=== PATIENT | female | born 1975 | race Caucasian/White ===

== ENCOUNTER 2016-09-28 12:22 | Emergency (ER) | payer OTHER ==
[~2016-09-28] VITALS: Ht 167.6 cm; Wt 59.0 kg
--- NOTE | 2016-09-28 12:25 | NUR ---
PATIENT ARRIVED TO ER AMBULATORY, C/O N/V, ABDOMINAL PAIN, AND HEADACHE. PATIENT'S VITALS STABLE. COMFORT AND SAFETY MEASURES PROVIDED, AWAITING MD ORDERS, WILL MONITOR.
[2016-09-28] MEDS ORDERED: ONDANSETRON HCL/PF 4 MG/2 ML VIAL IVP ONE (13:00)
[2016-09-28] MEDS ORDERED: IV NS 0.9% 500 ML BAG IV ONE (13:00)
[2016-09-28] MEDS ORDERED: KETOROLAC TROMETHAMINE INJ 60 MG/2 ML VIAL IM ONE ×2 (13:00→13:14)
[2016-09-28] MEDS ORDERED: IV SET PRIMARY PUMP SET 1 EA INFUS.SET MC ONE (13:14)
[2016-09-28] MEDS ORDERED: IV NS 0.9% 500 ML IV ONE (13:14)
[2016-09-28] MEDS ORDERED: ONDANSETRON HCL/PF 4 MG/2 ML VIAL ONE (13:14)
--- NOTE | 2016-09-28 13:20 | NUR ---
URINE OBTAINED, CALLED LAB FOR BODYWORK THERAPIST.
--- NOTE | 2016-09-28 13:33 | NUR ---
NEW IV STARTED LAC, 20 GAUGE. MEDICATED PATIENT PER MD ORDERS. REMAINS STABLE
--- NOTE | 2016-09-28 14:35 | NUR ---
PATIENT C/O DIZZINESS S/P 500 ML NS AND ZOFRAN 4 MG. ALESSANDRO BHATTI NOTIFIED, AWAITING ORDERS
[2016-09-28] MEDS ORDERED: MECLIZINE HCL 25 MG TABLET ONE (14:57)
[2016-09-28] MEDS ORDERED: MECLIZINE HCL 12.5 MG TABLET PO ONE (15:00)
--- NOTE | 2016-09-28 15:02 | NUR ---
NEW ORDER, MECLIZINE 25 MG ADMINISTERED ORALLY FOR DIZZINESS. WILL CONTINUE TO MONITOR.
[2016-09-28] MEDS ORDERED: METOCLOPRAMIDE HCL 10 MG/2 ML VIAL IV ONE (15:30)
[2016-09-28] MEDS ORDERED: METOCLOPRAMIDE HCL 10 MG/2 ML VIAL ONE (15:39)
[2016-09-28] MEDS ORDERED: IV NS 0.9% 1,000 ML ONE (16:59)
[2016-09-28] MEDS ORDERED: ACETAMINOPHEN ES 500 MG TABLET ONE (16:59)
[2016-09-28] MEDS ORDERED: IV SET PRIMARY 1 EA INFUS.SET MC ONE (16:59)
[2016-09-28] MEDS ORDERED: ACETAMINOPHEN ES 500 MG TABLET PO ONE (17:00)
[2016-09-28] MEDS ORDERED: IV NS 0.9% 1,000 ML BAG IV ONE (17:00)
--- NOTE | 2016-09-28 17:06 | NUR ---
PT TO CT
[2016-09-28 18:38] VITALS: BP 128/82
--- NOTE | 2016-09-28 18:43 | NUR ---
IV removed. Catheter intact and site benign. Pressure and 4x4 applied to site. No bleeding noted.Patient discharged to home in stable condition. Written and verbal after care instructions given. Patient verbalizes understanding of instruction. ambulatory with steady gait. no further complaints. leaving via ambulance with family in stable condition
== END 2016-09-28 18:42 | disposition home or self-care (01) ==
LOC: ER 12:24
DX: R42 Dizziness and giddiness (principal); R11.2 Nausea with vomiting, unspecified; R51 Headache; Z90.49 Acquired absence of other specified parts of digestive tract
CPT/HCPCS: 70450-TC; 84703-TC; A4606; J1885; J2405; J2765; J7030; J7040; J8597; Z7610